=== PATIENT | female | born 1985 | race African-American/Black ===

== ENCOUNTER 2017-01-28 10:08 | Emergency (ER) | payer OTHER | END 2017-01-28 11:50 | disposition home or self-care (01) | LOC: FER 10:08 | DX: J06.9 Acute upper respiratory infection, unspecified (principal); J32.9 Chronic sinusitis, unspecified | CPT/HCPCS: 99282 ==

== ENCOUNTER → 2021-01-02 | Day surgery (SDC) | payer OTHER ==
[~2021-01-02] MED LIST: AMOXICILLIN500 MG PO; CEPHALEXIN500 MG PO; DAILY VALUE1 EACH PO; HCTZ12.5 MG PO; HCTZ25 MG PO; IBUPROFEN800 M1 PO; MEDROL 4MG DOSEP4 MG PO; NORCO 5-325 TA1 EACH PO; PREDNISONE 20MG20 MG PO; TAMIFLU 75MG CA75 MG PO; ZPAK PO; ZYRTEC10 M3 PO
[2021-01-02 08:28] LABS: HCG (URINE) SCREEN NEGATIVE (NEGATIVE)
[2021-01-02 09:19] LABS: BUN/CREAT RATIO (CALC) 11.8 RATIO; CREATININE 0.76 mg/dL (0.51-0.95); POTASSIUM 3.7 mmol/L (3.5-5.1)
== END | disposition home or self-care (01) ==
LOC: FAS 07:43
PROVIDERS: Anesthesiology; Obstetrics & Gynecology
DX: D25.0 Submucous leiomyoma of uterus (principal); N92.1 Excessive and frequent menstruation with irregular cycle; I10 Essential (primary) hypertension; Z86.19 Personal history of other infectious and parasitic diseases; Z92.0 Personal history of contraception; Z87.59 Personal history of other complications of pregnancy, childbirth and the puerperium; Z91.018 Allergy to other foods; Z79.899 Other long term (current) drug therapy; Z86.16 Personal history of COVID-19
CPT/HCPCS: 36415; 80048; 84703; 93005; J1100; J1885; J2250; J2405; J2704; J3010; J7120

== ENCOUNTER 2021-05-22 11:52 | Emergency (ER) | payer OTHER ==
[~2021-05-22 11:52] MED LIST changes: -CEPHALEXIN500 MG PO
[2021-05-22] MEDS ORDERED: CEPHALEXIN500 MG PO (13:38)
== END 2021-05-22 14:00 | disposition home or self-care (01) ==
LOC: FER 11:52
DX: L08.9 Local infection of the skin and subcutaneous tissue, unspecified (principal); I10 Essential (primary) hypertension; J45.909 Unspecified asthma, uncomplicated; Z91.018 Allergy to other foods
CPT/HCPCS: 99283

== ENCOUNTER 2021-10-29 10:02 | Emergency (ER) | payer OTHER ==
[~2021-10-29 10:02] MED LIST changes: +CEPHALEXIN500 MG PO
[2021-10-29] MEDS ORDERED: VENTOLIN HFA IN18 GM INH (13:06)
[2021-10-29 13:11] LABS: INFLUENZA A NAA NEGATIVE (NEGATIVE)
[2021-10-29 13:14] LABS: CORONAVIRUS 2019 SARS-COV-2 POSITIVE (NEGATIVE)
== END 2021-10-29 13:35 | disposition home or self-care (01) ==
LOC: FER 10:02
PROVIDERS: Emergency Medicine
DX: U07.1 COVID-19 (principal); J40 Bronchitis, not specified as acute or chronic; J45.909 Unspecified asthma, uncomplicated
CPT/HCPCS: 71045; J2405; U0002